=== PATIENT | male | born 1975 | race Caucasian/White ===

== ENCOUNTER 2021-06-16 21:52 | Emergency (ER) | payer OTHER ==
[~2021-06-16] VITALS: Ht 177.8 cm; Wt 73.4 kg
[2021-06-16] MEDS ORDERED: DOXYCYCLINE HY100 MG PO (22:15)
== END 2021-06-16 22:30 | disposition home or self-care (01) ==
LOC: ED 21:52
DX: L02.413 Cutaneous abscess of right upper limb (principal)
CPT/HCPCS: 99282